=== PATIENT | male | born 1995 | race Caucasian/White ===

== ENCOUNTER → 2020-09-06 00:48 | Outpatient (CLI) | payer BC, SELFPAY ==
[2020-09-06 20:39] LABS: SARS-CoV-2 RNA PCR Negative
== END ==
PROVIDERS: PCP Family Medicine; Visit Provider Surgery
DX: Z01.812 Encounter for preprocedural laboratory examination (principal); Z20.822 Contact with and (suspected) exposure to COVID-19
CPT/HCPCS: C9803; U0003; U0005

== ENCOUNTER 2020-09-09 01:41 | Day surgery (SDC) | payer BC, SELFPAY ==
[2020-09-08 13:10] VITALS: BMI 45.1
[2020-09-09] VITALS (8 sets, daily range): BP systolic 118–148; BP diastolic 67–92; PULSE 71–97; RESP 14–22; TEMP 36.4–36.5; O2SAT 98–100
[2020-09-09] MEDS: LACTATED RINGERS 1,000 ML 30 ML IV CONT (12:48)
--- NOTE | 2020-09-09 13:02 | P.PNAN_ITS ---
Anes - Initial Pre Proc Eval Procedure: Operation Date: 09/09/20 14:30 Proposed Procedures p Excision Of Pilonidal Cyst And Tracts - Henrik Hagan MD Date/Time: 09/09/20 13:02 Surgeon: Henrik Hagan MD Pre Op Diagnosis: Pilonidal Cyst Patient Data Age: 24 Gender: M Height: 5 ft 10 in Weight: 139.4 kg Last Vital Signs Temp 97.7 F 09/09/20 12:27 Pulse 80 09/09/20 12:27 Resp 14 09/09/20 12:27 BP 125/91 H 09/09/20 12:27 Pulse Ox 99 09/09/20 12:27 Allergies Allergy/AdvReac Type Severity Reaction Status Date / Time No Known Allergies Allergy Unverified 09/09/20 12:38 Home Medications Medication Instructions Recorded Confirmed Type No Home Medications 09/04/20 09/09/20 History Patient hx anesthesia problems: none Family hx anesthesia problems: none [facility] Past Medical History Medical History (Updated 09/09/20 @ 13:01 by Bo Doshi MD) Obesity, morbid, BMI 40.0-49.9 Surgical History Surgical History Pilonidal cyst I & D Family History Family History Other Diabetes mellitus Heart disease Cancer Social History Social History Smoking status: Never smoker Tobacco type: smokeless tobacco Smokeless tobacco user: chewing tobacco Second hand tobacco smoke exposure: No Alcohol intake: current Drinks per week: 2 Substance use: never Substance use type: does not use Living arrangements: other Additional living arrangements comments: significant other Gender identity (if verbalized by the patient): Male Spiritual care concerns: No Anes - Eval Final PreProcedure Day of Procedure 09/09/20 13:02 Patient weight: morbidly obese Heart: regular rate and rhythm Lungs: clear to auscultation Airway: Mallampati scale class II Neurological: alert and oriented Last oral intake: >/= 8 hours ASA classification: III Emergent: no Anesthetic plan: proceed Anesthesia type and monitoring: general ETT and standard monitoring Informed Consent: The patient's anesthetic plan and its attendant risks and benefits were discussed with the patient/family/POA. Questions were solicited and answers provided to the satisfaction of the patient/family/POA.
--- NOTE | 2020-09-09 13:45 | WPDHPUPDATE1 ---
History and Physical Update Update Date/Time: 09/09/20 13:45 History and Physical has been reviewed, including an updated exam of the patient. There are NO changes in the patient's condition. Risks, benefits, and alternatives have been discussed and questions answered. Patient agrees to proceed with procedure.
[2020-09-09] MEDS: ceFAZolin 3 GM/D5W 100 ML 100 ML IVPB (14:01)
[2020-09-09] MEDS: BUPIVACAINE/EPINEPHRINE 0.5% 30 ML VIAL INFILTRATE (14:30)
--- NOTE | 2020-09-09 15:10 | SUR.OPER ---
Ebl=5ml
--- NOTE | 2020-09-09 15:23 | P.OP_ITS ---
Procedure Note - Detailed Date of procedure: 09/09/20 Pre-op diagnosis: Pilonidal Cyst Multiple cysts along the crease Post-op diagnosis: same Procedure performed: Excision of pilonidal cyst and tracks (complex). Description of procedure: Patient was seen in the preop area and area marked. All questions answered. Possible problems of bleeding, infection, possible wound separation have all been discussed. Following this the patient was brought to the operating room on his OR cart. He was then anesthetized and intubated while on the OR cart. He was then turned prone on the operating room table in carefully cushion and protected in that position. The buttocks were then taped somewhat CIS open by placing benzoin on the skin and then nylon tape on each buttock carefully taping it to the table such that it the crease to some degree. Following this careful Betadine prep was completed and the area draped sterilely. Following this a curvilinear S shaped incision was outlined around the visible openings to the pilonidal cyst and tracks. This incision at of measuring approximately 6 cm long in a curvilinear fashion through the area. Inferiorly the tip of the curve was toward the left side and superiorly toward the right side. Following this local anesthetic using 0.5% Marcaine with epinephrine was carefully injected along the entire length of both sides of the proposed incision. Incision was made with a 15 blade knife and carried down to the fascia. I then used Bovie cautery with a needle tip to carefully use cutting and cautery current to excise the ellipse of skin along with the underlying fat and fascia. This was passed off the field in a single piece. There were 2 small 1 cm rounded areas that appeared to be almost like lipomas in the wall of the incision. These were excised and passed off the field with the other specimen. Hemostasis was achieved within the wound. Basic blood loss during this part of the procedure was only about 5 cc. Following this we began closure. Closure was obtained after injecting for the local anesthetic into the deep fascia and surrounding subcutaneous tissue. The wound was about 2-2.5 cm deep I use several deep interrupted 2 0 Vicryl sutures that were buried in the subcu tissues and tied separately this began to approximate the wound. We on taped the buttocks at this point so that the buttocks crease could fall together. More superficially then about 4 5 more 0 Vicryl CIS 2 0 Vicryl sutures were placed in the subcutaneous tissues approximating the wound in a curvilinear S-shaped. Following this we carefully use interrupted vertical mattress 3 0 nylons to approximate the skin margin area was cleansed dried at Telfa applied right directly over the stitches followed by 2 folded super sponges followed by to Tegaderm states seal this in completely. Patient tolerated the procedure well Estimated blood loss 5 cc Sponge needle instrument counts were correct at the end of the procedure. Surgeon: Henrik Hagan MD Internal Communications Manager: YAMIL Calix, OR 1st assist, and YAMIL Chowdary,BORING MACHINE FEEDER, 1st assist. Estimated blood loss (mL): 5 Drains: No Packing: No Pathology: yes (Skin of the pilonidal area with cysts and tracks) Complications: No immediate complications Condition: stable Disposition: PACU Findings: Small punctate openings along the crease with underlying tracks. We did not cut across any obvious abscess areas or tracks during the excision.
[2020-09-09] MEDS: oxyCODONE HCL (*CRX) 5 MG TAB IR PO (16:27)
== END 2020-09-09 17:30 | disposition home or self-care (01) ==
PROVIDERS: PCP Family Medicine; Visit Provider Surgery
PROC: (CPT 11772; principal; 2020-09-09 14:30)
DX: L05.91 Pilonidal cyst without abscess (principal); E66.01 Morbid (severe) obesity due to excess calories; Z68.41 Body mass index [BMI] 40.0-44.9, adult; F17.220 Nicotine dependence, chewing tobacco, uncomplicated
CPT/HCPCS: 11772; 88304; 88305; A9270; C9803; J0330; J0690; J1100; J2250; J2704; J3010; J7120; U0003; U0005